=== PATIENT | male | born 1955 | race African-American/Black ===

== ENCOUNTER 2018-12-26 06:44 | Emergency (ER) | payer SELFPAY ==
[~2018-12-26] VITALS: Ht 175.3 cm; Wt 90.7 kg
--- NOTE | 2018-12-26 06:59 | NUR ---
ED Nurse Note: Pt c/o tingings feeling all the body since 0500 today. epr pt he feels like almost passing out pt is aox4. with stable VS. pt also c/o general weakness.
[2018-12-26 07:02] VITALS: BP 150/91
--- NOTE | 2018-12-26 07:15 | NUR ---
ED Nurse Note: Received reports. pt lying in bed comfortably. IV inserted by KENRICK Hoover. RN asked pt to changed to hospital gown. per pt, off the thyroid meds for 1 yr due to insurance issue. starting feeling week since this morning around 0500. pt also c/o blood in stool for over 1 week. seen by PCP and test done. awaiting for result. per pt, sometimes dark red and sometimes bright red. denies any dizziness. able to walked with steady gait. AAO x4. respirations even and non-labored noted. skin warm to touch. no open wound noted. will wait for the result.
--- NOTE | 2018-12-26 07:18 | Emergency Room Report ---
History of Present Illness General Chief Complaint: Generalized Weakness Source: Patient Present Illness HPI Patient presents with general weakness Reports that he had history of GI bleed in the past Denies any previous intervention Denies any chest pain denies any shortness of breath he reports that this morning upon awaking he had a'tingling'sensation throughout his body Denies any focal weakness Denies any neck pain or photophobia Denies any recent travel Patient contacted paramedics Upon arrival patient was found to be hemodynamically stable And patient drove himself to the emergency room Allergies: Coded Allergies: No Known Allergies (Unverified , 12/26/18) Patient History Past Medical History: see triage record Pertinent Family History: none Reviewed Nursing Documentation: PMH: Agreed; PSxH: Agreed Nursing Documentation-PMH Hx Diabetes: Yes - Hypothroidism Hx Gastrointestinal Problems: Yes - GERD, blood in stool Review of Systems All Other Systems: negative except mentioned in HPI Physical Exam Vital Signs Date Time Temp Pulse Resp B/P (MAP) Pulse Ox O2 Delivery O2 Flow Rate FiO2 12/26/18 06:49 98.1 75 18 150/91 97 Room Air Sp02 EP Interpretation: reviewed, normal General Appearance: well appearing, no apparent distress Head: normocephalic, atraumatic Eyes: bilateral eye PERRL, bilateral eye EOMI ENT: hearing grossly normal, normal pharynx, TMs + canals normal, uvula midline Neck: full range of motion, supple, no meningismus, no bony tend Respiratory: lungs clear, normal breath sounds, no rhonchi, no respiratory distress, no retraction, no accessory muscle use Cardiovascular #1: normal peripheral pulses, regular rate, rhythm, no edema, no gallop, no JVD, no murmur Gastrointestinal: normal bowel sounds, non tender, soft, no mass, no organomegaly, non-distended, no guarding, no hernia, no pulsatile mass, no rebound Genitourinary: no CVA tenderness Musculoskeletal: normal inspection Neurologic: oriented x3, responsive, field software engineer III-XII nml as tested, motor strength/ tone normal, sensory intact Psychiatric: mood/affect normal Skin: normal color, no rash, warm/dry, palpation normal Lymphatic: normal inspection, no adenopathy Medical Decision Making Diagnostic Impression: Primary Impression: Hypothyroid ER Course Multiple differentials considered given the patient's history of thyroid disease also plays and to consideration. Patient white blood cell count is mildly low at 4.3 creatinine mildly high at 1.5 Thyroid level free T4 is low at 0.5 for Patient was previously on medication He does not know the specific dosage Patient remains hemodynamically stable heart rate is appropriate Blood pressure appropriate Patient will be initiated on his medications and requires close follow-up white blood cell low at 4.3 Creatinine high at 1.5 Free T4 low at 0.54 Rhythm Strip Diag. Results EP Interpretation: yes Rate: 60 Rhythm: NSR, no PVC's, no ectopy Last Vital Signs Date Time Temp Pulse Resp B/P (MAP) Pulse Ox O2 Delivery O2 Flow Rate FiO2 12/26/18 07:02 75 18 Room Air 12/26/18 07:02 98.1 150/91 97 Status: improved Disposition: HOME, SELF-CARE Condition: Stable Scripts Levothyroxine Sodium (Synthroid) 50 Mcg Tablet 50 MCG ORAL DAILY, #20 TAB Take in the morning on an empty stomach, at least 30 minutes beforefood. Prov: Giovana Castellon DO 12/26/18 Additional Instructions: Patient is provided with the discharge instructions notified to follow up with primary doctor in the next 2-3 days otherwise return to the er with any worsening symptoms. Please note that this report is being documented using [employer] technology. This can lead to erroneous entry secondary to incorrect interpretation by the dictating instrument. Giovana Castellon DO Dec 26, 2018 07:17
[2018-12-26 07:33] LABS: BASOPHILS % (AUTO) 1.1 % (0.0-2.0); EOSINOPHILS % (AUTO) 1.4 % (0.0-3.0); HEMATOCRIT 46.4 % (42.0-52.0); HEMOGLOBIN 15.2 G/DL (14.2-18.0); LYMPHOCYTES % (AUTO) 39.6 % (20.0-45.0); MEAN CORPUSCULAR VOLUME 95 FL (80-99); MONOCYTES % (AUTO) 9.9 % (1.0-10.0); PLATELET COUNT 245 K/UL (150-450); RED CELL DISTRIBUTION WIDTH 12.7 % (11.6-14.8); WHITE BLOOD COUNT 4.3 K/UL (4.8-10.8)
[2018-12-26 07:41] LABS: ANION GAP 5 mmol/L (5-15); BLOOD UREA NITROGEN 18 mg/dL (7-18); CALCIUM 8.6 MG/DL (8.5-10.1); CARBON DIOXIDE 31 MMOL/L (21-32); CHLORIDE 103 MMOL/L (98-107); CREATININE 1.5 MG/DL (0.55-1.30); POTASSIUM 4.4 MMOL/L (3.5-5.1); SODIUM 138 MMOL/L (136-145)
[2018-12-26 07:54] LABS: ALANINE AMINOTRANSFERASE 40 U/L (12-78); ALBUMIN 3.7 G/DL (3.4-5.0); ALBUMIN/GLOBULIN RATIO 0.8 (1.0-2.7); ALKALINE PHOSPHATASE 92 U/L (46-116); ASPARTATE AMINO TRANSFERASE 34 U/L (15-37); BILIRUBIN,TOTAL 0.4 MG/DL (0.2-1.0); CKMB 1.7 NG/ML (0.0-3.6); CREATINE KINASE 513 U/L (26-308)
[2018-12-26] MEDS ORDERED: UNOBMED (08:33)
[2018-12-26] MEDS ORDERED: SYNTHROID50 MCG ORAL (09:10)
[2018-12-26 09:21] VITALS: BP 142/80
--- NOTE | 2018-12-26 09:24 | NUR ---
ED Nurse Note: Patient is being discharged from medical care with prescription. Awake, alert and oriented x3. All medical devices such as IV and ID band were removed. Patient ambulated out with all personal belongings with steady gait.
--- NOTE | 2018-12-27 23:35 | Cardiology Report ---
APPROVED REPORT EKG Measurement Heart [id number] Normal sinus rhythm Normal ECG
== END 2018-12-26 09:25 | disposition home or self-care (01) ==
LOC: EMR 07:30
DX: E03.9 Hypothyroidism, unspecified (principal)
CPT/HCPCS: 36415; 80053; 80307; 82550; 82553; 84439; 84443; 85025; 93005; 99284